=== PATIENT | female | born 1970 | race Caucasian/White ===

== ENCOUNTER 2018-10-05 23:13 | Emergency (ER) | payer SELFPAY ==
[~2018-10-05] VITALS: Ht 154.9 cm; Wt 146.1 kg
[2018-10-05 23:17] VITALS: Ht 154.9 cm; Wt 146.1 kg
[2018-10-06 01:47] VITALS: BP 105/65
== END 2018-10-06 01:47 | disposition home or self-care (01) ==
LOC: ED 23:13
DX: T62.91XA Toxic effect of unspecified noxious substance eaten as food, accidental (unintentional), initial encounter (principal); Y92.89 Other specified places as the place of occurrence of the external cause
CPT/HCPCS: J1200; J2930; Q0162